=== PATIENT | male | born 1950 | race Caucasian/White ===

== ENCOUNTER → 2016-11-25 | Outpatient (CLI) | payer MEDICARE, OTHER ==
[~2016-11-25] MED LIST: ASPI-621 PO; GLUCOSAMINE PO; MULT-516 PO
[2016-11-25 12:58] LABS: HEMATOCRIT 45.2 % (39.2-51.8); HEMOGLOBIN 15.8 g/dL (13.7-18.0); WHITE BLOOD COUNT 6.6 x10^3/uL (3.4-10)
[2016-11-25 13:03] LABS: PATH.CAST-FLAG NOT PRESENT; SPERM-FLAG NOT PRESENT; SRC-FLAG NOT PRESENT; XTAL-FLAG NOT PRESENT; YLC-FLAG NOT PRESENT
[2016-11-25 13:10] LABS: BLOOD UREA NITROGEN 23 mg/dL (7-18)
[2016-11-25 13:18] LABS: ASPARTATE AMINO TRANSFERASE 20 U/L (15-37); PROSTATE SPECIFIC ANTIGEN 5.29 ng/mL (0.00-4.00)
== END | disposition home or self-care (01) ==
LOC: STAR 12:11
PROVIDERS: ATTEND Urology
DX: Z01.818 Encounter for other preprocedural examination (principal); N43.3 Hydrocele, unspecified; R97.20 Elevated prostate specific antigen [PSA]; R82.79 Other abnormal findings on microbiological examination of urine
CPT/HCPCS: 36415; 80053; 81001; 84153; 85025; 87077; 87086; 93005

== ENCOUNTER 2016-12-03 11:02 | Day surgery (SDC) | payer MEDICARE, OTHER ==
[2016-11-25 12:28] VITALS: BP 161/83
[~2016-12-03] VITALS: Ht 175.3 cm; Wt 86.2 kg
[2016-12-03] MEDS ORDERED: LACTATED RINGERS 1,000 ML IV SCH (11:29)
[2016-12-03] MEDS ORDERED: FENTANYL PF 100 MCG/2ML ONE ×2 (12:37)
[2016-12-03] MEDS ORDERED: MIDAZOLAM 1 MG/ML, 2ML ONE (12:38)
[2016-12-03] MEDS ORDERED: ONDANSETRON 2MG/ML, 2ML ONE (12:40)
[2016-12-03] MEDS ORDERED: PROPOFOL 10 MG/ML, 20ML ONE (12:40)
[2016-12-03] MEDS ORDERED: ROCURONIUM 10 MG/ML ONE (12:40)
[2016-12-03] MEDS ORDERED: SUCCINYLCHOLINE 20 MG/ML, 10ML ONE (12:40)
[2016-12-03] MEDS ORDERED: DEXAMETHASONE 4 MG/ML, 1ML ONE (12:40)
[2016-12-03] MEDS ORDERED: LIDOCAINE/PF 1%, 30ML ONE (13:09)
[2016-12-03] MEDS ORDERED: THROMBIN 5,000 UNIT VIAL TP ONE (13:09)
[2016-12-03] MEDS ORDERED: BUPIVACAINE/PF 0.5% ONE (13:09)
[2016-12-03] MEDS ORDERED: CEFAZOLIN 1,000 MG ONE (15:41)
[2016-12-03] MEDS ORDERED: HYDROmorphone 1 MG/ML, 1ML IV PRN (16:30)
[2016-12-03] MEDS ORDERED: ONDANSETRON 2MG/ML, 2ML IVPush PRN (16:30)
[2016-12-03] MEDS ORDERED: ACETAMINOPHEN 325 MG TABLET PO PRN (16:30)
[2016-12-03] MEDS ORDERED: HYDROcodone/APAP 7.5-325MG/15ML UDC PO PRN (16:30)
[2016-12-03] MEDS ORDERED: FENTANYL PF 100 MCG/2ML IV PRN (16:30)
[2016-12-03] MEDS ORDERED: OXYcodone 5 MG/5 ML ORAL.SOL UDC PO PRN (16:30)
[2016-12-03] MEDS ORDERED: KETOROLAC 30 MG/1 ML ONE (16:45)
[2016-12-03] MEDS ORDERED: ACETAMINOPHEN 650 MG/20.3 ML UDC ONE (17:14)
[2016-12-03] MEDS ORDERED: OXYcodone 5 MG/5 ML ORAL.SOL UDC ONE (17:14)
[2016-12-03] MEDS ORDERED: HYDROcodone/APAP 5/325 TABLET ONE (18:51)
[2016-12-03] MEDS ORDERED: HYDR-3240 PO (19:07)
[2016-12-03] MEDS ORDERED: ONDA4TAB7 PO (19:09)
[2016-12-03 19:13] VITALS: BP 140/90
[2016-12-04] MEDS ORDERED: MULTIVITAMIN 1 TABLET PO SCH (09:00)
== END 2016-12-03 19:30 | disposition home or self-care (01) ==
LOC: OUT 11:02 → EDSTATUS 14:30 → 4NOR 18:36 → OUT 19:30
PROVIDERS: ATTEND Urology
DX: N43.3 Hydrocele, unspecified (principal); Z88.0 Allergy status to penicillin; Z87.39 Personal history of other diseases of the musculoskeletal system and connective tissue; Z98.890 Other specified postprocedural states; Z87.891 Personal history of nicotine dependence
CPT/HCPCS: 55040; C1729; C2617; J0330; J0690; J1100; J1885; J2250; J2405; J2704; J3010; J3490